=== PATIENT | female | born 1990 | race African-American/Black ===

== ENCOUNTER 2016-10-02 08:59 | Outpatient (CLI) | payer MEDICAID ==
--- NOTE | 2016-10-02 10:00 | L&D Flow Sheet ---
LD Flowsheet Datetime Report Generated by CPN: 10/02/2016 10:00 Datetime: 10/02/2016 09:47 Vital Signs NBP Sys/Judy/Mean (mmHg): 121 (QS system process) : 65 (QS system process) : 84 (QS system process) Pulse: 87 (QS system process) Datetime: 10/02/2016 09:45 Patient Care Patient Position/Activity: Left Lateral (Oriana Jocy, RN) I/O Interventions: Clear Liquids Given (Oriana Jocy, RN) Datetime: 10/02/2016 09:33 Uterine Activity Frequency (min): unsure (Oriana Jocy, RN) Pain Pain Scale: 5 (Oriana Jocy, RN) Pain Presence: Constant (Oriana Jocy, RN) Pain Type: Pressure; Ache (Oriana Jocy, RN) Pain Location: Abdomen; Back (Oriana Jocy, RN) Pain Relief Measures: POWERHOUSE ENGINEER Use (Oriana Jocy, RN) Vaginal Exam Vaginal Bleeding: None (Oriana Jocy, RN) Maternal Assessment Level of Consciousness: Fully Conscious (Oriana Sandra RN) Headache: Denies (Oriana Sandra RN) Breath Sounds, Left: Clear and Equal (Oriana Sandra RN) Breath Sounds, Right: Clear and Equal (Oriana Sandra RN) Nausea/Vomiting: Present (Oriana Sandra RN) RUQ Epigastric Pain: Denies (Oriana Sandra RN)
[2016-10-02 10:35] LABS: APPEARANCE,URINE CLEAR; BILIRUBIN,URINE NEGATIVE (NEGATIVE); GLUCOSE, URINE NEGATIVE (NEGATIVE); KETONES,URINE NEGATIVE (NEGATIVE); LEUKOCYTE ESTERASE,URINE LARGE (NEGATIVE); NITRITE,URINE NEGATIVE (NEGATIVE); PROTEIN,URINE NEGATIVE (NEGATIVE); URINE SPECIFIC GRAVITY 1.008; UROBILINOGEN,URINE NEGATIVE mg/dL (<2.0)
[2016-10-02 10:56] LABS: URINE BARBITURATES SCREEN NEGATIVE; URINE METHADONE SCREEN NEGATIVE; URINE OPIATES LOW NEGATIVE; URINE PHENCYCLIDINE SCREEN NEGATIVE
--- NOTE | 2016-10-02 11:22 | Non Stress Test Report ---
Non Stress Test Datetime Report Generated by CPN: 10/02/2016 11:21 DEMOGRAPHIC EGA NST: 33.4 INDICATION Indication for Study: Ordered by Provider Indication for Study (NST) Other: LC MONITORING Monitor Explained: Monitor Explained; Test Explained; Patient Verbalized Understanding Time on Monitor: 10/02/2016 09:44 Time off Monitor: 10/02/2016 10:50 NST Duration: 66 NST INTERVENTIONS NST Interventions: PO Hydration Physician Notified NST: H. Rajendra CNM BABY A: [id number] BABY A Movement : Present Contraction Frequency : occasional FHR Baseline : 135 Accelerations : 15X15 Decelerations : Variable Variability : Moderate 6-25bpm NST Review: Meets Criteria for Reactive NST NST Review and Verified By : Prashant Hollis RN NST Results: Reactive NST REPORT Report Trigger: Send Report
== END 2016-10-02 11:01 | disposition home or self-care (01) ==
LOC: EDSTATUS 09:12 → LC 09:21
PROVIDERS: ATTEND Obstetrics & Gynecology
PROC: 4A1HXCZ Monitoring of Products of Conception, Cardiac Rate, External Approach (ICD-10-PCS; principal; 2016-10-02)
DX: O76 Abnormality in fetal heart rate and rhythm complicating labor and delivery (principal); Z3A.33 33 weeks gestation of pregnancy
CPT/HCPCS: 59025; 80307; 81001

== ENCOUNTER 2017-11-03 06:20 | Emergency (ER) | payer MEDICAID, OTHER ==
[2017-11-03] MEDS ORDERED: DEXAMETHASONE SOD PHOS INJ 10 MG/1 ML VIAL IM ONE (06:36)
[2017-11-03] MEDS ORDERED: KETOROLAC TROMETHAMINE INJ/PF 30 MG/1 ML SDV IM ONE (06:36)
--- NOTE | 2017-11-03 06:42 | ER Document Report ---
HPI - HPI Pain Level: 5 Notes: Patient is a 27-year-old female with no significant past medical history who presents to the ED complaining of low back pain left greater than the right 2 days status post twist injury. Patient states that she was getting up and twisted wrong and had pain in her back. Patient states that on occasion the pain radiates into her buttocks bilaterally. Patient has tried some over-the- counter meds with minimal relief. The pain is worsened with twisting and bending of the trunk. Patient states that she is still able to ambulate and weight-bear otherwise. She has not had any surgeries or injections in her back. She denies any smoking, IV drug use, previous spinal abscess. Patient states that she is eating and drinking without any difficulties. She is urinating normally and having normal bowel movements. Denies any headache, fever, URI, sore throat, chest pain, palpitations, syncope, cough, shortness of breath, wheeze, dyspnea, abdominal pain, nausea/vomiting/diarrhea, urinary retention, dysuria, hematuria, loss of control of bowel or bladder, numbness/ tingling, saddle anesthesia, muscle paralysis/weakness, or rash. - ROS Systems Reviewed and Negative: Yes All other systems reviewed and negative - REPRODUCTIVE Reproductive: DENIES: : Past Medical History - Social History Smoking Status: Never Smoker Family History: Reviewed & Not Pertinent Pulmonary Medical History: Reports: Hx Asthma Past Surgical History: Reports: Hx Abdominal Surgery - lap band 2010 Vertical Provider Document - CONSTITUTIONAL Agree With Documented VS: Yes Notes: PHYSICAL EXAMINATION: GENERAL: Well-appearing, well-nourished and in no acute distress. Obese. Answers questions appropriately. LUNGS: Breath sounds clear to auscultation bilaterally and equal. No wheezes rales or rhonchi. HEART: Regular rate and rhythm without murmurs, rubs, gallops. ABDOMEN: Soft, nontender, nondistended abdomen. No guarding, no rebound. No masses appreciated. Normal bowel sounds present. No CVA tenderness bilaterally. No pulsatile mass Musculoskeletal: LE's b/l: FROM to passive/active. Strength 5+/5. No deficits noted. No bony tenderness of extremities. Back: FROM to passive/active. Strength 5+/5. No vertebral point tenderness, stepoffs, or deformities. No other bony tenderness, erythema, swelling, or ecchymosis. SLR negative b/l. + tenderness to the L>R L-paraspinal mm. Mild spasming. + left SI jt tenderness. No foot drop Extremities: No cyanosis, clubbing, or edema b/l. Peripheral pulses 2+. Capillary refill less than 2 seconds. NEUROLOGICAL: Normal speech, normal to minimally ataxic gait. Normal sensory, motor exams. Reflexes 2+ b/l. PSYCH: Normal mood, normal affect. SKIN: Warm, Dry, normal turgor, no rashes or lesions noted. - INFECTION CONTROL TRAVEL OUTSIDE OF THE [place] IN LAST 30 DAYS: No Course - Re-evaluation Re-evalutation: 11/03/17 06:40 Patient is an afebrile, well-hydrated, 27-year-old female who presents to the ED with low back pain, suspect low back strain. Vitals are acceptable. PE is otherwise unremarkable for any focal neurological deficits. Patient has no significant tachycardia, tachypnea, or hypoxia. Patient is ambulatory and is able to weight-bear without any difficulties. Patient has reproducible lower back pain to palpation that is worsened with twisting and truncal movements as well. No other labs or imaging warranted at this time based on H&P. Low suspicion for any meningitis, fracture, expanding/ruptured AAA, cauda equina syndrome, epidural mass lesion/abscess, herniated disc causing severe spinal stenosis, or other systemic infection at this time. Patient is aware that her condition can change from initial presentation and that she needs monitor symptoms closely for any acute changes. Toradol, Decadron given IM today. I will send her home with a prescription for naproxen as well as baclofen. Conservative measures otherwise for symptoms. Recheck with your PCM in 3-5 days. Consider consult orthopedics and physical therapy. Return to the ED with any worsening/concerning symptoms otherwise as reviewed discharge. Patient is in agreement. - Vital Signs Vital signs: Temp Pulse Resp BP Pulse Ox 98.1 F 90 16 139/73 H 99 11/03/17 06:24 11/03/17 06:24 11/03/17 06:24 11/03/17 06:24 11/03/17 06:24 Discharge - Discharge Clinical Impression: Low back strain Qualifiers: Encounter type: initial encounter Qualified Code(s): S39.012A - Strain of muscle, fascia and tendon of lower back, initial encounter Condition: Stable Disposition: HOME, SELF-CARE Instructions: Low Back Pain ([facility]), Muscle Strain ([facility]), Stretching Exercises for the Back ([facility]), Muscle Relaxers ([facility]) Additional Instructions: Rest, Ice Tylenol/ibuprofen as needed Light stretches daily Strength exercises as able Moist heat and massage may help F/u with your PCP in 3-5 days for a recheck Consider consult(s) with Orthopedics/physical therapy for ongoing/worsening symptoms Return to the ED with any worsening symptoms and/or development of fever, headache, chest pain, palpitations, syncope, shortness of breath, trouble breathing, abdominal pain, n/v/d, blood in stool/urine, loss of control of bowel /bladder, urinary retention, muscle weakness/paralysis, saddle anesthesia, numbness/tingling, or other worsening symptoms that are concerning to you. Prescriptions: Baclofen [Baclofen 10 mg Tablet] 5 - 10 mg PO BID PRN #10 tablet PRN Reason: Naproxen 500 mg PO BID PRN #30 tablet PRN Reason: Forms: Elevated Blood Pressure Referrals: [facility] ([facility]) [Provider Group] - Follow up as needed
[2017-11-03 07:11] VITALS: BP 148/84
== END 2017-11-03 07:11 | disposition home or self-care (01) ==
LOC: ER 06:20
DX: S39.012A Strain of muscle, fascia and tendon of lower back, initial encounter (principal); X50.0XXA Overexertion from strenuous movement or load, initial encounter
CPT/HCPCS: 99283; 96372; J1885; J1100

== ENCOUNTER 2018-08-16 21:09 | Emergency (ER) | payer SELFPAY ==
[2018-08-16 21:14] VITALS: BP 151/81
[2018-08-16 23:02] LABS: A TYPE INFLUENZA AG NEGATIVE (NEGATIVE); B INFLUENZA AG NEGATIVE (NEGATIVE)
[2018-08-17] MEDS ORDERED: ACETAMINOPHEN 325 MG TABLET PO ONE (00:05)
--- NOTE | 2018-08-17 00:09 | ER Document Report ---
HPI - HPI Patient complains to provider of: vomiting, fever, body aches, sore throat, SOB Time Seen by Provider: 08/16/18 23:46 Pain Level: 3 Context: 28 female with no past medical history presents to the emergency department for vomiting, fever, body aches, sore throat, diarrhea, shortness of breath. She states symptoms started Thursday and she has vomited 3 times since then that is secondary to nausea not to her cough. She does complain of persistent cough. She had a fever yesterday T-max 102 orally. She complains of body aches since Thursday, positive sore throat, approximately 6 episodes of diarrhea since Thursday, abdominal cramping, denies urinary symptoms. She has not gotten her flu shot this year. - CONSTITUTIONAL Constitutional: REPORTS: Fever, Chills - EENT EENT: REPORTS: Sore Throat. DENIES: Ear Pain, Eye problems - NEURO Neurology: REPORTS: Headache, Weakness. DENIES: Vision blurred, Dizzinesss / Vertigo - CARDIOVASCULAR Cardiovascular: DENIES: Chest pain - RESPIRATORY Respiratory: DENIES: Trouble Breathing, Coughing - GASTROINTESTINAL Gastrointestinal: REPORTS: Abdominal Pain. DENIES: Black / Bloody Stools - URINARY Urinary: DENIES: Dysuria, Urgency, Frequency - REPRODUCTIVE Reproductive: DENIES: : - MUSCULOSKELETAL Musculoskeletal: DENIES: Extremity pain Past Medical History - Social History Smoking Status: Unknown if Ever Smoked Family History: Reviewed & Not Pertinent Patient has suicidal ideation: No Patient has homicidal ideation: No Pulmonary Medical History: Reports: Hx Asthma Renal/ Medical History: Denies: Hx Peritoneal Dialysis Past Surgical History: Reports: Hx Abdominal Surgery - lap band 2010 Vertical Provider Document - CONSTITUTIONAL Notes: PHYSICAL EXAMINATION: Reviewed vital signs and charting by RN GENERAL: Alert, interacts well. No acute distress. HEAD: Normocephalic, atraumatic. EYES: Pupils equal, round, and reactive to light. Extraocular movements intact. ENT: Oral mucosa moist, tongue midline. Red, abnormal left TM, unable to visualize landmarks, looked friable. Patient states she does have a history of tympanostomy tubes later in life. 2+ tonsillar hypertrophy, minimal erythema, no soft palate petechiae, one area of tonsillar exudate on the left tonsil. NECK: Full range of motion. Supple. Trachea midline. Bilateral cervical lymphadenopathy LUNGS: Left side clear to auscultation bilaterally, right side with adventitious inspiratory sounds. No respiratory distress. HEART: Regular rate and rhythm. No murmur ABDOMEN: soft, non-tender. Non-distended. Bowel sounds present in all 4 quadrants. no McBurney's point tenderness, no Hollis sign. EXTREMITIES: Moves all 4 extremities spontaneously. No edema, No cyanosis. BACK: no cervical, thoracic, lumbar midline tenderness. No saddle anesthesia, normal distal neurovascular exam. NEUROLOGICAL: Alert and oriented x3. Normal speech. PSYCH: Normal affect, normal mood. SKIN: Warm, dry, normal turgor. No rashes or lesions noted. - INFECTION CONTROL TRAVEL OUTSIDE OF THE [place] IN LAST 30 DAYS: No Course - Re-evaluation Re-evalutation: 08/17/18 00:08 28-year-old female with no history presents for flulike symptoms. Patient with history of frequent strep throat and tympanostomy tubes later in life. Group A strep ordered, chest x-ray ordered. 08/17/18 01:49 Influenza and group A strep negative. Most likely represents a viral illness. She does have a friable left TM that will be treated with amoxicillin. - Vital Signs Vital signs: Temp Pulse Resp BP Pulse Ox 98.6 F 77 18 151/81 H 97 08/16/18 21:13 08/16/18 21:13 08/16/18 21:13 08/16/18 21:13 08/16/18 21:13 Discharge - Discharge Clinical Impression: Otitis media Qualifiers: Otitis media type: unspecified nonsuppurative Laterality: left Qualified Code(s): H65.92 - Unspecified nonsuppurative otitis media, left ear Condition: Good Disposition: HOME, SELF-CARE Instructions: Acetaminophen Additional Instructions: You were seen today for ear pain and have an acute ear infection. Please take the antibiotic that has been prescribed until it is completed even if you are feeling better before you have finished all the antibiotics. For your pain: Take ibuprofen 600 mg and acetaminophen 1000 mg every 6 hours together as needed for pain. Return if you have worsening of your pain, loss of hearing in the affected ear, worsening facial pain, headaches, pass out, or any other symptoms that are worrisome to you.
[2018-08-17] MEDS ORDERED: AMOXICILLIN TRIHYDRATE 500 MG CAPSULE PO ONE (01:49)
== END 2018-08-17 02:16 | disposition home or self-care (01) ==
LOC: ER 21:09
DX: H65.92 Unspecified nonsuppurative otitis media, left ear (principal); R11.10 Vomiting, unspecified; R50.9 Fever, unspecified; M79.10 Myalgia, unspecified site; J02.9 Acute pharyngitis, unspecified; R06.02 Shortness of breath; R05 Cough; R19.7 Diarrhea, unspecified; J45.909 Unspecified asthma, uncomplicated
CPT/HCPCS: 87070; 87804; 87880; 99283

== ENCOUNTER 2019-07-30 02:27 | Emergency (ER) | payer SELFPAY ==
[2019-07-30 02:38] VITALS: BP 132/81
== END 2019-07-30 07:10 | disposition left against medical advice (07) ==
LOC: ER 02:27
DX: Z53.21 Procedure and treatment not carried out due to patient leaving prior to being seen by health care provider (principal); M54.9 Dorsalgia, unspecified

== ENCOUNTER 2019-07-30 15:02 | Emergency (ER) | payer SELFPAY ==
[2019-07-30] MEDS ORDERED: IBUPROFEN 800 MG TABLET PO ONE (16:46)
--- NOTE | 2019-07-30 16:48 | ER Document Report ---
HPI - HPI Time Seen by Provider: 07/30/19 16:46 Notes: Patient is a 29-year-old female with no significant past medical history who presents complaint of left lateral lower rib pain x1 week that is worse when she takes a deep breath or pushes in the area. Patient states that she was coughing around the time when she noticed the immediate pain. They states that the pain does not radiate. No SOB/dyspnea/CP. She is able to eat and drink without difficulty. She is urinating normally and having normal bowel movements. Her cough is since resolved. Denies drug allergies. Denies any prolonged immobilization, distance travel, recent surgery/trauma, personal cancer history, hormone use, smoking, or previous DVT/PE. Denies any headache, fever, neck pain, URI, sore throat, chest pain, palpitations, syncope, cough, shortness of breath, wheeze, dyspnea, abdominal pain, nausea/vomiting/diarrhea, urinary retention, dysuria, hematuria, or rash. - ROS Systems Reviewed and Negative: Yes All other systems reviewed and negative - REPRODUCTIVE Reproductive: DENIES: : Past Medical History - Social History Smoking Status: Never Smoker Family History: Reviewed & Not Pertinent Pulmonary Medical History: Reports: Hx Asthma Renal/ Medical History: Denies: Hx Peritoneal Dialysis Past Surgical History: Reports: Hx Abdominal Surgery - lap band 2010 Vertical Provider Document - CONSTITUTIONAL Agree With Documented VS: Yes Notes: PHYSICAL EXAMINATION: GENERAL: Well-appearing, well-nourished and in no acute distress. HEAD: Atraumatic, normocephalic. EYES: Pupils equal round and reactive to light, extraocular movements intact, sclera anicteric, conjunctiva are normal. ENT: Nares patent and without discharge. oropharynx clear without exudates. No tonsilar hypertrophy or erythema. Moist mucous membranes. NECK: Normal range of motion, supple without lymphadenopathy Chest: + reproducible tenderness to palpation of the left lateral lower rib area and reproducible with trunk movement. LUNGS: Breath sounds clear to auscultation bilaterally and equal. No wheezes rales or rhonchi. HEART: Regular rate and rhythm without murmurs, rubs, gallops. ABDOMEN: Soft, nontender, nondistended abdomen. No guarding, no rebound. Normal bowel sounds present. ? CVA vs MS tenderness left side. Musculoskeletal: FROM to passive/active. Strength 5+/5. Kesha neg. No asymmetry to LE's. Extremities: No cyanosis, clubbing, or edema b/l. Peripheral pulses 2+. Capillary refill less than 3 seconds. NEUROLOGICAL: Normal speech, normal gait. PSYCH: Normal mood, normal affect. SKIN: Warm, Dry, normal turgor, no rashes or lesions noted. - INFECTION CONTROL TRAVEL OUTSIDE OF THE [place] IN LAST 30 DAYS: No Course - Re-evaluation Re-evalutation: 07/30/19 19:11 Patient is an afebrile, well-hydrated, 29-year-old female who presents with left lateral lower rib pain that is reproducible on exam by palpation and range of motion. Vitals are except without significant tachycardia, tachypnea, hypoxia. PE is otherwise unremarkable. Patient's abdomen is soft nontender throughout. Her lungs are clear to auscultation bilaterally. Chest x-ray and urinalysis unremarkable. Patient is nontoxic-appearing and is tolerating p.o. without difficulty. No further work-up warranted at this time. Low suspicion for any other systemic or emergent condition at this time including but not limited to sepsis, PE, ACS, pneumothorax, pericarditis, dissection, acute abdomen. Patient does not have any chest pain, shortness of breath, or dyspnea on exertion. She is PERC/Wells negative. Patient was given Motrin p.o. I will send her home w ith a prescription for Motrin. Recheck with your PCM in 3 to 5 days. Return to the ED with any other worsening/concerning symptoms. Patient is in agreement. - Vital Signs Vital signs: Temp Pulse Resp BP Pulse Ox 98.6 F 78 22 H 149/93 H 100 07/30/19 15:10 07/30/19 15:10 07/30/19 15:10 07/30/19 15:10 07/30/19 15:10 Discharge - Discharge Clinical Impression: Rib pain on left side Condition: Stable Disposition: HOME, SELF-CARE Additional Instructions: Rest, Ice, Compression, Elevation Tylenol/ibuprofen as needed Light stretches daily Strength exercises as able Moist heat and massage may help F/u with your PCP in 3-5 days for a recheck Consider consult(s) with Orthopedics/physical therapy for ongoing/worsening symptoms Return to the ED with any worsening symptoms and/or development of fever, headache, chest pain, palpitations, syncope, shortness of breath, trouble breathing, abdominal pain, n/v/d, muscle weakness/paralysis, numbness/tingling, swelling, redness, or other worsening symptoms that are concerning to you. Prescriptions: Ibuprofen [Motrin 800 mg Tablet] 800 mg PO Q8H PRN #15 tab PRN Reason: Forms: Elevated Blood Pressure Referrals: [facility] ([facility]) [Provider Group] - Follow up as needed
[2019-07-30 17:16] LABS: APPEARANCE,URINE SLIGHTLY-CLOUDY; BILIRUBIN,URINE NEGATIVE (NEGATIVE); COLOR,URINE YELLOW; GLUCOSE, URINE NEGATIVE (NEGATIVE); KETONES,URINE NEGATIVE (NEGATIVE); PROTEIN,URINE NEGATIVE (NEGATIVE); URINE SPECIFIC GRAVITY 1.013; UROBILINOGEN,URINE NEGATIVE mg/dL (<2.0)
--- NOTE | 2019-07-30 18:06 | RADIOLOGY REPORT (SQ) ---
EXAM DESCRIPTION: RIBS LEFT W/PA CHEST COMPLETED DATE/TIME: 07/30/2019 5:17 pm REASON FOR STUDY: left lateral lower rib pain COMPARISON: None. TECHNIQUE: Frontal view of the chest and additional views of the left ribs acquired. NUMBER OF VIEWS: Five view. LIMITATIONS: None. FINDINGS: FRONTAL CXR: No pneumothorax. No pleural effusion. No atelectasis or infiltrates. RIBS: No displaced rib fractures. No lytic or blastic bony lesions. OTHER: Adjustable lap band and reservoir project over the left hemiabdomen. IMPRESSION: No displaced rib fracture. No acute abnormality of the lungs. COMMENT: SITE OF TRAUMA/COMPLAINT MARKED/STAMP COMPLETED: YES. TECHNICAL DOCUMENTATION: JOB ID: [id number] [employer]- All Rights Reserved Reading location - IP/workstation name: [email or web address]
[2019-07-30 19:32] VITALS: BP 144/86
== END 2019-07-30 20:02 | disposition home or self-care (01) ==
LOC: ER 15:02
DX: R07.81 Pleurodynia (principal); R05 Cough; J45.909 Unspecified asthma, uncomplicated
CPT/HCPCS: 81001; 81025; 99283